=== PATIENT | female | born 1990 | race African-American/Black ===

== ENCOUNTER 2017-07-01 01:13 | Emergency (ER) | payer OTHER, SELFPAY | END 2017-07-01 01:36 | disposition home or self-care (01) | LOC: BURERS 01:13 | DX: J06.9 Acute upper respiratory infection, unspecified (principal) | CPT/HCPCS: 99283 ==

== ENCOUNTER 2025-05-24 14:55 | Emergency (ER) | payer SELFPAY ==
[2025-05-24] MEDS ORDERED: Acetaminophen 500 MG TAB ONE (15:37)
== END 2025-05-24 15:50 | disposition home or self-care (01) ==
LOC: BURERS 14:55
DX: J20.9 Acute bronchitis, unspecified (principal); I10 Essential (primary) hypertension; Z79.899 Other long term (current) drug therapy
CPT/HCPCS: 87428; 99283